=== PATIENT | female | born 1985 ===

== ENCOUNTER 2017-06-19 10:34 | Emergency (ER) | payer OTHER ==
[2017-06-19 10:34] VITALS: BMI 29.9
[2017-06-19 10:45] VITALS: TEMP 98.2; O2SAT 99
--- NOTE | 2017-06-19 11:15 | ED PDOC ---
Arrival/HPI - General Chief Complaint: Female Genitourinary Time Seen by Provider: 06/19/17 10:59 Historian: Patient - History of Present Illness Narrative History of Present Illness (Text): 06/19/17 11:12 This 31 yo female , who denies pmh, presents to this ED c/o delayed menstruation x 20 days. Patient also stated pelvic cramping, b/l lower back pain, and vaginal bleeding since last night. Patient noted intermittent urinary frequency x 1-2 weeks. Patient stated she took Ibuprofen 800 mg last night for pain. Patient denies n/v/d, sob, cp, dizziness, vaginal discharge, or abnormal gait. Urine HCG: Positive with positive control LMP: 2016 ED TECH: DR. Choi from [facility] Patient has changed one pad since yesterday Time/Duration: Other (see hpi) Context: Home Past Medical History - Provider Review Nursing Documentation Reviewed: Yes - Infectious Disease Hx of Infectious Diseases: None - Tetanus Immunization Tetanus Immunization: Unknown - Cardiac Hx Cardiac Disorders: No - Pulmonary Hx Respiratory Disorders: No - Neurological Hx Neurological Disorder: No - HEENT Hx HEENT Disorder: No - Renal Hx Renal Disorder: Yes Hx Kidney Stones: Yes - Endocrine/Metabolic Hx Endocrine Disorders: No - Hematological/Oncological Hx Blood Disorders: Yes Hx Anemia: Yes - Integumentary Hx Dermatological Disorder: No - Musculoskeletal/Rheumatological Hx Musculoskeletal Disorders: No - Gastrointestinal Hx Gastrointestinal Disorders: No - Genitourinary/Gynecological Hx Genitourinary Disorders: No - Psychiatric Hx Psychophysiologic Disorder: No Hx Substance Use: No - Surgical History Hx Section: Yes Hx Tonsillectomy: Yes - Anesthesia Hx Anesthesia: Yes Hx Anesthesia Reactions: No Hx Malignant Hyperthermia: No - Suicidal Assessment Feels Threatened In Home Enviroment: No Family/Social History - Physician Review Nursing Documentation Reviewed: Yes Family/Social History: Other (noncontributory) Smoking Status: Never Smoked Hx Alcohol Use: No Hx Substance Use: No Hx Substance Use Treatment: No Allergies/Home Meds Allergies/Adverse Reactions: Allergies No Known Allergies Allergy (Verified 06/19/17 10:37) Home Medications: Home Meds Medication Instructions Recorded Confirmed Multivit/Folic Acid/I 1 tab PO DAILY 06/19/17 06/19/17 [] Review of Systems - Review of Systems Constitutional: Normal. absent: Fatigue, Weight Change, Fevers Eyes: Normal ENT: Normal Respiratory: Normal. absent: SOB Cardiovascular: Normal Gastrointestinal: Other (pelvic cramping). absent: Diarrhea, Nausea, Vomiting Genitourinary Female: Vaginal Bleeding. absent: Dysuria, Frequency, Hematuria, Vaginal Discharge Musculoskeletal: Back Pain. absent: Neck Pain Skin: Normal. absent: Rash Neurological: Normal. absent: Headache, Dizziness Endocrine: Normal Hemo/Lymphatic: Normal Psychiatric: Normal Physical Exam Vital Signs Temp Pulse Resp BP Pulse Ox 06/19/17 15:34 61 18 113/65 99 06/19/17 13:41 64 18 115/69 99 06/19/17 12:07 65 18 118/71 99 06/19/17 10:38 98.2 F 67 16 121/75 99 Temperature: Afebrile Blood Pressure: Normal Pulse: Regular Respiratory Rate: Normal Appearance: Positive for: Well-Appearing, Non-Toxic, Comfortable Pain Distress: None Mental Status: Positive for: Alert and Oriented X 3 - Systems Exam Head: Present: Atraumatic, Normocephalic Pupils: Present: PERRL Extroacular Muscles: Present: EOMI Conjunctiva: Present: Normal Mouth: Present: Moist Mucous Membranes Neck: Present: Normal Range of Motion Respiratory/Chest: Present: Clear to Auscultation, Good Air Exchange. No: Respiratory Distress, Accessory Muscle Use Cardiovascular: Present: Regular Rate and Rhythm, Normal S1, S2. No: Murmurs Abdomen: Present: Normal Bowel Sounds. No: Tenderness, Distention, Peritoneal Signs Genitourinary/Pelvic Exam: Present: Other (deferred by patient) Back: Present: Normal Inspection. No: CVA Tenderness Upper Extremity: Present: Normal Inspection, Normal ROM. No: Cyanosis, Edema Lower Extremity: Present: Normal Inspection, Normal ROM. No: Edema Neurological: Present: GCS=15, CN II-XII Intact, Speech Normal, Motor Func Grossly Intact, Normal Sensory Function, Normal Cerebellar Funct, Gait Normal Skin: Present: Warm, Dry, Normal Color. No: Rashes Psychiatric: Present: Alert, Oriented x 3, Normal Insight, Normal Concentration Medical Decision Making ED Course and Treatment: 06/19/17 15:[address] Choi ED TECH, who recommended to have patient get a repeat Beta Quant. in 2 days. She agrees with plan to d/c pt home. Patient refused pelvic exam. Re-evaluation. Patient feels better. Discussed results and plan with patient who expresses understanding. All questions answered and there is agreement with the plan to discharge home with instructions. Patient stable for discharge. Return if symptoms persist or worsen. Re-evaluation Time: 15:18 Reassessment Condition: Re-examined, Improved - Lab Interpretations Lab Results: 06/19/17 11:30 06/19/17 11:30 Lab Results 06/19/17 12:00: Blood Type AB POSITIVE, Antibody Screen Negative, BBK History Checked Patient has bt 06/19/17 12:00: Urine Color Yellow, Urine Appearance Sl cloudy, Urine pH 6.0, Ur Specific [place] >= 1.030, Urine Protein 30 H, Urine Glucose (UA) Negative, Urine Ketones Negative, Urine Blood Large H, Urine Nitrate Positive H, Urine Bilirubin Negative, Urine Urobilinogen 0.2, Ur Leukocyte Esterase Small H, Urine RBC 25 - 30, Urine WBC 10 - 15, Ur Epithelial Cells 6 - 8, Amorphous Sediment Small, Urine Bacteria Many, Urine Other Uyeast, Urine HCG, Qual Positive 06/19/17 11:30: Beta HCG, Quant 196.31 H 06/19/17 11:30: Sodium 140, Potassium 3.9, Chloride 104, Carbon Dioxide 26, Anion Gap 14, BUN 12, Creatinine 0.6 L, Est GFR ( Amer) > 60, Est GFR ( Non-Af Amer) > 60, Random Glucose 119 H, Calcium 9.2, Total Bilirubin 0.4, AST 34, ALT 29, Alkaline Phosphatase 64, Total Protein 7.9, Albumin 4.2, Globulin 3.7, Albumin/Globulin Ratio 1.1 06/19/17 11:30: PT 12.7 H, INR 1.15 H, APTT 28.9 06/19/17 11:30: WBC 9.6, RBC 6.04, Hgb 11.5 L, Hct 38.0, MCV 62.9 L, MCH 19.0 L , MCHC 30.3 L, RDW 24.6 H, Plt Count 288, Gran % 71.1 H, Lymph % (Auto) 22.4, [place] % (Auto) 4.5, Eos % (Auto) 1.7, Baso % (Auto) 0.3, Gran # 6.82 H, Lymph # 2.2, [place] # 0.4, Eos # 0.2, Baso # 0.03 I have reviewed the lab results: Yes Interpretation: Abnormal lab values - RAD Interpretation Narrative RAD Interpretations (Text): 06/19/17 14:49 Accession No. : [id number] Patient Name / ID : DEEDEE DELAROSA / [id number] Exam Date : 06/19/2017 11:20:39 ( Approved ) Study Comment : Sex / Age : F / 31Y Creator : Мария Nicole MD Dictator : Мария Nicole MD Gas Meter Checker : Career Services Officer : Мария Nicole MD Approver2 : Report Date : 06/19/2017 14:44:10 My Comment : Indication: Pelvic cramping, vaginal bleeding. Comparison: Pelvic ultrasound performed 02/25/16 Technique: Transvaginal pelvic ultrasound. Findings: The uterus measures approximately 8.8 x 4.7 x 6.6 cm. Anteverted. Endometrial thickness measures approximately 1.1 cm in diameter. No evidence of intrauterine gestational sac. The right ovary measures 2.8 x 1.0 x 1.1 cm. The left ovary measures 2.4 x 1.3 x 1.5 cm. Blood flow Flow was demonstrated to both ovaries. Impression: No evidence of intrauterine gestational sac. If indeed the patient is based on serum beta HCG values, the sonographic findings represent either: Very early IUP; embryonic demise; ectopic gestation. Follow-up with serial quantitative serum beta HCG measurements and post OBGYN follow-up as clinically indicated, since ectopic gestation cannot be excluded based only on sonographic findings. Radiology Orders: 06/19/17 11:10 TRANSVAGINAL [US] Stat - Medication Orders Current Medication Orders: Discontinued Medications Nitrofurantoin Macrocrystals (Macrobid) 100 mg PO STAT STA Stop: 12/27/17 12:23 Last Admin: 06/19/17 12:50 Dose: 100 mg Disposition/Present on Arrival - Present on Arrival Any Indicators Present on Arrival: No History of DVT/PE: No History of Uncontrolled Diabetes: No Urinary Catheter: No History of Decub. Ulcer: No History Surgical Site Infection Following: None - Disposition Have Diagnosis and Disposition been Completed?: Yes Diagnosis: Vaginal bleeding affecting early , Acute cystitis during in first trimester Disposition: HOME/ ROUTINE Disposition Time: 15:19 Patient Plan: Discharge Condition: GOOD Discharge Instructions (ExitCare): First Trimester Vaginal Bleed (ED) Additional Instructions: You need to return to emergency to have Beta Quant. blood test repeated in 2 days. Return to emergency sooner if pelvic pain worsen. Take medication as instructed. Take OTC Tylenol for pain as instructed. Prescriptions: Nitrofurantoin Macrocrystals [Macrobid] 100 mg PO BID #13 cap Multivit/Folic Acid/I [ Plus] 1 tab PO DAILY #30 tab Referrals: Tammie Choi MD [Medical Doctor] - Follow up with primary Forms: [facility] (Italian), WORK NOTE
[2017-06-19 12:02] LABS: BASO # 0.03 K/mm3 (0.0-2.0); BASO % 0.3 % (0.0-3.0); EOS # 0.2 (0.0-0.7); EOS % 1.7 % (1.5-5.0); GRAN # 6.82 (1.4-6.5); GRAN % 71.1 % (50.0-68.0); HEMOGLOBIN 11.5 g/dL (12.0-16.0); LYMPH # 2.2 (1.2-3.4); LYMPH % 22.4 % (22.0-35.0); MEAN CELL VOLUME 62.9 fl (80.0-105.0); MEAN CORPUSCULAR HGB CONC 30.3 g/dl (31.0-37.0); MONO # 0.4 (0.1-0.6); MONO % 4.5 % (1.0-6.0); PLATELET COUNT 288 10^3/uL (120.0-450.0); RBC 6.04 10^6/uL (3.5-6.1); RED CELL DISTRIBUTION WIDTH 24.6 % (11.5-14.5); WHITE BLOOD COUNT 9.6 10^3/ul (4.5-11.0)
[2017-06-19 12:06] LABS: ALB/GLOB RATIO 1.1 (1.1-1.8); ALBUMIN 4.2 g/dL (3.0-4.8); ALT/SGPT 29 U/L (7-56); AST/SGOT 34 U/L (14-36); BLOOD UREA NITROGEN 12 mg/dL (7-21); CALCIUM 9.2 mg/dL (8.4-10.5); GFR AFRICAN-AMERICAN > 60; GFR NON-AFRICAN AMERICAN > 60
[2017-06-19 12:08] VITALS: RESP 18
[2017-06-19 12:08] LABS: INR 1.15 (0.93-1.08); PARTIAL THROMBOPLASTIN TIME 28.9 Seconds (25.1-36.5); PROTHROMBIN TIME 12.7 SECONDS (9.4-12.5)
[2017-06-19 12:14] LABS: URINE BILIRUBIN NEGATIVE (NEGATIVE); URINE BLOOD LARGE (NEGATIVE); URINE GLUCOSE (UA) NEGATIVE (NEGATIVE); URINE LEUKOCYTE ESTERASE SMALL Leu/uL (NEGATIVE); URINE NITRATE POSITIVE (NEGATIVE); URINE PROTEIN 30 mg/dL (<30 mg/dL); URINE UROBILINOGEN 0.2 E.U./dL (<1 E.U./dL)
[2017-06-19 12:16] LABS: HCG,QUALITATIVE URINE POSITIVE (NEGATIVE); URINE APPEARANCE SL CLOUDY (CLEAR); URINE COLOR YELLOW (YELLOW)
[2017-06-19 12:19] LABS: URINE AMORPHOUS SEDIMENT SMALL; URINE BACTERIA MANY (NEG); URINE RBC 25 - 30 /hpf (0-2)
--- NOTE | 2017-06-19 14:45 | US ---
Indication: Pelvic cramping, vaginal bleeding. Comparison: Pelvic ultrasound performed 02/25/16 Technique: Transvaginal pelvic ultrasound. Findings: The uterus measures approximately 8.8 x 4.7 x 6.6 cm. Anteverted. Endometrial thickness measures approximately 1.1 cm in diameter. No evidence of intrauterine gestational sac. The right ovary measures 2.8 x 1.0 x 1.1 cm. The left ovary measures 2.4 x 1.3 x 1.5 cm. Blood flow Flow was demonstrated to both ovaries. Impression: No evidence of intrauterine gestational sac. If indeed the patient is based on serum beta HCG values, the sonographic findings represent either: Very early IUP; embryonic demise; ectopic gestation. Follow-up with serial quantitative serum beta HCG measurements and post OBGYN follow-up as clinically indicated, since ectopic gestation cannot be excluded based only on sonographic findings.
[2017-06-19 15:35] VITALS: BP 113/65; PULSE 61
== END 2017-06-19 15:39 | disposition home or self-care (01) ==
LOC: ED 10:34
DX: O46.91 Antepartum hemorrhage, unspecified, first trimester (principal); O23.11 Infections of bladder in pregnancy, first trimester; Z3A.00 Weeks of gestation of pregnancy not specified

== ENCOUNTER 2017-06-21 16:50 | Emergency (ER) | payer OTHER ==
[2017-06-21 16:50] VITALS: BMI 29.9
[2017-06-21 16:59] VITALS: BP 104/72; PULSE 75; RESP 16; TEMP 97.6; O2SAT 100
--- NOTE | 2017-06-21 17:03 | ED PDOC ---
Arrival/HPI - General Chief Complaint: Female Genitourinary Time Seen by Provider: 06/21/17 16:56 Historian: Patient - History of Present Illness Narrative History of Present Illness (Text): 06/21/17 16:59 PT is a 31yo female who present to ED for a repeat beta quant. Patient was seen here on June 19 for vaginal bleeding. She was found and baseline beta quant was done with a recommendations for a repeat beta in 2days. She came to ED for the beta. States still having mild vaginal bleeding. Denies abdominal pain, nausea, vomiting, fever, chills, any other complaint. 1 Past Medical History - Provider Review Nursing Documentation Reviewed: Yes - Infectious Disease Hx of Infectious Diseases: None - Tetanus Immunization Tetanus Immunization: Unknown - Cardiac Hx Cardiac Disorders: No - Pulmonary Hx Respiratory Disorders: No - Neurological Hx Neurological Disorder: No - HEENT Hx HEENT Disorder: No - Renal Hx Renal Disorder: Yes Hx Kidney Stones: Yes - Endocrine/Metabolic Hx Endocrine Disorders: No - Hematological/Oncological Hx Blood Disorders: Yes Hx Anemia: Yes - Integumentary Hx Dermatological Disorder: No - Musculoskeletal/Rheumatological Hx Musculoskeletal Disorders: No - Gastrointestinal Hx Gastrointestinal Disorders: No - Genitourinary/Gynecological Hx Genitourinary Disorders: No - Psychiatric Hx Psychophysiologic Disorder: No Hx Substance Use: No - Surgical History Hx Section: Yes Hx Tonsillectomy: Yes - Anesthesia Hx Anesthesia: Yes Hx Anesthesia Reactions: No Hx Malignant Hyperthermia: No - Suicidal Assessment Feels Threatened In Home Enviroment: No Family/Social History - Physician Review Nursing Documentation Reviewed: Yes Family/Social History: Unknown Family HX Smoking Status: Never Smoked Hx Alcohol Use: No Hx Substance Use: No Hx Substance Use Treatment: No Allergies/Home Meds Allergies/Adverse Reactions: Allergies No Known Allergies Allergy (Verified 06/21/17 16:53) Review of Systems - Physician Review All systems were reviewed & negative as marked: Yes - Review of Systems Constitutional: Normal Eyes: Normal ENT: Normal Respiratory: Normal Cardiovascular: Normal Gastrointestinal: Normal Genitourinary Female: Vaginal Bleeding, Other Musculoskeletal: Normal Skin: Normal Neurological: Normal Endocrine: Normal Hemo/Lymphatic: Normal Psychiatric: Normal Physical Exam Vital Signs Reviewed: Yes Vital Signs Temp Pulse Resp BP Pulse Ox 06/21/17 16:57 97.6 F 75 16 104/72 100 Temperature: Afebrile Blood Pressure: Normal Pulse: Regular Respiratory Rate: Normal Appearance: Positive for: Well-Appearing, Non-Toxic, Comfortable Pain Distress: None Mental Status: Positive for: Alert and Oriented X 3 - Systems Exam Head: Present: Atraumatic, Normocephalic Pupils: Present: PERRL Extroacular Muscles: Present: EOMI Conjunctiva: Present: Normal Mouth: Present: Moist Mucous Membranes Neck: Present: Normal Range of Motion Respiratory/Chest: Present: Clear to Auscultation, Good Air Exchange. No: Respiratory Distress, Accessory Muscle Use Cardiovascular: Present: Regular Rate and Rhythm, Normal S1, S2. No: Murmurs Abdomen: Present: Normal Bowel Sounds. No: Tenderness, Distention, Peritoneal Signs Back: Present: Normal Inspection Upper Extremity: Present: Normal Inspection. No: Cyanosis, Edema Lower Extremity: Present: Normal Inspection. No: Edema Neurological: Present: GCS=15, CN II-XII Intact, Speech Normal Skin: Present: Warm, Dry, Normal Color. No: Rashes Psychiatric: Present: Alert, Oriented x 3, Normal Insight, Normal Concentration Medical Decision Making ED Course and Treatment: 06/21/17 18:21 Pt was comfortable in ED. Repeat beta was decreased 46.84 compare to what it was 2days ago, 196.31. Result was DW the pt. she was referred to her OB. She notes that she have appointment with her OB Dr Choi July 01. T ED for any new or worsening symptoms. - Lab Interpretations Lab Results: Lab Results 06/21/17 17:10: Beta HCG, Quant 46.84 H Disposition/Present on Arrival - Present on Arrival Any Indicators Present on Arrival: No History of DVT/PE: No History of Uncontrolled Diabetes: No Urinary Catheter: No History of Decub. Ulcer: No History Surgical Site Infection Following: None - Disposition Have Diagnosis and Disposition been Completed?: Yes Diagnosis: Threatened Disposition: HOME/ ROUTINE Disposition Time: 18:25 Patient Plan: Discharge Patient Problems: Current Active Problems Problem Status Onset Threatened Acute Condition: STABLE Discharge Instructions (ExitCare): Threatened Miscarriage (ED) Additional Instructions: Follow up wiht your OB for a repeat beta quant Return to ED for any new or worsening symptoms. Referrals: [facility] Candida oClon, [Primary Care Provider] - Follow up with primary Forms: [employer] (Vietnamese)
== END 2017-06-21 18:10 | disposition home or self-care (01) ==
LOC: ED 16:50
DX: O20.0 Threatened abortion (principal); Z3A.00 Weeks of gestation of pregnancy not specified

== ENCOUNTER 2017-10-08 04:34 | Emergency (ER) | payer OTHER ==
[2017-10-08 04:35] VITALS: BMI 29.9
[2017-10-08 04:52] VITALS: RESP 18; O2SAT 100
[2017-10-08] MEDS ORDERED: Morphine 4 mg/ml ISec IVP STA (04:58)
--- NOTE | 2017-10-08 05:22 | ED PDOC ---
Arrival/HPI - General Chief Complaint: Female Genitourinary Time Seen by Provider: 10/08/17 04:52 Historian: Patient - History of Present Illness Narrative History of Present Illness (Text): 10/08/17 05:19 32 year old female, whose 5,3,0,1,3, presents to the emergency department complaining of worsening abdominal cramping and vaginal bleeding. Patient went to see Dr. Corky Maguire who diagnosed the patient is having a miscarriage. Patient reports she is 10 1/12 weeks , but ultrasound showed 6 weeks with an empty sac. Dr. Choi told the patient if the bleeding gets worse to go to the ER. Patient did not know we did not have a OB. She reports her OB may work at [employer]. Patient denies any fever, chills, chest pain, shortness of breath, nausea, vomiting, diarrhea, urinary symptoms, back pain, neck pain, headache, dizziness, or any other complaints. Symptom Onset: Gradual Symptom Course: Worsening Activities at Onset: Light Context: Home Past Medical History - Infectious Disease Hx of Infectious Diseases: None - Tetanus Immunization Tetanus Immunization: Unknown - Cardiac Hx Cardiac Disorders: No - Pulmonary Hx Respiratory Disorders: No - Neurological Hx Neurological Disorder: No - HEENT Hx HEENT Disorder: No - Renal Hx Renal Disorder: Yes Hx Kidney Stones: Yes - Endocrine/Metabolic Hx Endocrine Disorders: No - Hematological/Oncological Hx Blood Disorders: Yes Hx Anemia: Yes - Integumentary Hx Dermatological Disorder: No - Musculoskeletal/Rheumatological Hx Musculoskeletal Disorders: No - Gastrointestinal Hx Gastrointestinal Disorders: No - Genitourinary/Gynecological Hx Genitourinary Disorders: No - Psychiatric Hx Psychophysiologic Disorder: No Hx Substance Use: No - Surgical History Hx Section: Yes Hx Tonsillectomy: Yes - Anesthesia Hx Anesthesia: Yes Hx Anesthesia Reactions: No Hx Malignant Hyperthermia: No - Suicidal Assessment Feels Threatened In Home Enviroment: No Family/Social History - Physician Review Nursing Documentation Reviewed: Yes Family/Social History: No Known Family HX Smoking Status: Never Smoked Hx Alcohol Use: No Hx Substance Use: No Hx Substance Use Treatment: No Allergies/Home Meds Allergies/Adverse Reactions: Allergies No Known Allergies Allergy (Verified 06/21/17 16:53) Review of Systems - Physician Review All systems were reviewed & negative as marked: Yes - Review of Systems Constitutional: absent: Fevers, Other (Chills) Respiratory: absent: SOB Cardiovascular: absent: Chest Pain Gastrointestinal: Abdominal Pain (Abdominal cramping ). absent: Diarrhea, Nausea, Vomiting Genitourinary Female: Vaginal Bleeding. absent: Dysuria, Frequency, Hematuria Musculoskeletal: absent: Back Pain, Neck Pain Neurological: absent: Headache, Dizziness Physical Exam Vital Signs Reviewed: Yes Vital Signs Pulse Resp BP Pulse Ox 10/08/17 06:35 60 18 141/60 100 10/08/17 04:51 75 18 129/84 100 Blood Pressure: Normal Pulse: Regular Respiratory Rate: Normal Appearance: Positive for: Well-Appearing, Non-Toxic, Comfortable Pain Distress: None Mental Status: Positive for: Alert and Oriented X 3 - Systems Exam Head: Present: Atraumatic, Normocephalic Pupils: Present: PERRL Extroacular Muscles: Present: EOMI Conjunctiva: Present: Normal Mouth: Present: Moist Mucous Membranes Neck: Present: Normal Range of Motion Respiratory/Chest: Present: Clear to Auscultation, Good Air Exchange. No: Respiratory Distress, Accessory Muscle Use Cardiovascular: Present: Regular Rate and Rhythm, Normal S1, S2. No: Murmurs Abdomen: No: Tenderness, Distention, Peritoneal Signs Back: Present: Normal Inspection Upper Extremity: Present: Normal Inspection. No: Cyanosis, Edema Lower Extremity: Present: Normal Inspection. No: Edema Neurological: Present: GCS=15, CN II-XII Intact, Speech Normal Skin: Present: Warm, Dry, Normal Color. No: Rashes Psychiatric: Present: Alert, Oriented x 3, Normal Insight, Normal Concentration Medical Decision Making ED Course and Treatment: 10/08/17 05:20 Impression: 32 year old female presents complaining of worsening abdominal cramping and vaginal bleeding. Patient currently having a miscarriage. Plan: -- Labs -- Morphine, Zofran Inj -- Urinalysis -- Transvaginal Us -- Reassess and disposition Prior Visits: Notes and results from previous visits were reviewed. On 06/21/17 patient came in complaining of vaginal bleeding. Patient was discharged. Progress Notes: 10/08/2017 07:06 Transvaginal US IMPRESSION: 1. The endometrial stripe measures 2.8 cm with complex echogenicity and fluid in the endometrial canal. There is echogenic material within the lower uterine segment and the proximal endocervical canal likely representing products of conception and blood products with spontaneous in progress. The possibility of endometritis/infection is not excluded if clinically suspected. Correlation with gynecology history clinical evaluation and further workup or followup as recommended by patient's clinical data. Dictator: Rachael Baker MD - Lab Interpretations Lab Results: 10/08/17 05:35 10/08/17 05:35 Lab Results 10/08/17 05:35: Beta HCG, Quant 4584.10 H 10/08/17 05:35: Sodium 138, Potassium 4.1, Chloride 102, Carbon Dioxide 25, Anion Gap 15, BUN 13, Creatinine 0.6 L, Est GFR ( Amer) > 60, Est GFR ( Non-Af Amer) > 60, Random Glucose 109, Calcium 8.9, Total Bilirubin 0.2, AST 44 H D, ALT 41, Alkaline Phosphatase 55, Total Protein 7.6, Albumin 4.2, Globulin 3.4, Albumin/Globulin Ratio 1.2 10/08/17 05:35: WBC 13.7 H D, RBC 5.68, Hgb 12.6, Hct 38.4, MCV 67.6 L D, MCH 22.2 L, MCHC 32.8, RDW 16.3 H, Plt Count 280, MPV 10.0, Gran % 67.6, Lymph % ( Auto) 26.4, [place] % (Auto) 3.9, Eos % (Auto) 1.8, Baso % (Auto) 0.3, Gran # 9.23 H, Lymph # (Auto) 3.6 H, [place] # (Auto) 0.5, Eos # (Auto) 0.3, Baso # (Auto) 0.04 I have reviewed the lab results: Yes - RAD Interpretation Radiology Orders: 10/08/17 04:58 OB TRANSVAGINAL [US] Stat - Medication Orders Current Medication Orders: Discontinued Medications Morphine Sulfate (Morphine) 4 mg IVP STAT STA Stop: 10/08/17 04:59 Last Admin: 10/08/17 06:34 Dose: 4 mg DEBI Pain Assessment Document 10/08/17 06:34 SS (Rec: 10/08/17 06:35 SS [facility] [id number] Pain Reassessment Is this a pain reassessment? No Sleep Is patient sleeping during reassessment? No Presence of Pain Presence of Pain Yes Pain Scale Used Pain Scale Used Numeric Location Upper or Lower Lower Pain Location Body Site Abdomen Description Description Cramping IVP Administration Document 10/08/17 06:34 SS (Rec: 10/08/17 06:[address] [facility] [id number] Charges for Administration # of IVP Administrations 1 Ondansetron HCl (Zofran Inj) 4 mg IVP STAT STA Stop: 10/08/17 04:59 Last Admin: 10/08/17 06:34 Dose: 4 mg IVP Administration Document 10/08/17 06:34 SS (Rec: 10/08/17 06:[address] [facility] [id number] Charges for Administration # of IVP Administrations 1 - Scribe Statement The provider has reviewed the documentation as recorded by the Homer Gambino Provider Scribe Attestation: All medical record entries made by the Scribe were at my direction and personally dictated by me. I have reviewed the chart and agree that the record accurately reflects my personal performance of the history, physical exam, medical decision making, and the department course for this patient. I have also personally directed, reviewed, and agree with the discharge instructions and disposition. Disposition/Present on Arrival - Present on Arrival History of DVT/PE: No History of Uncontrolled Diabetes: No Urinary Catheter: No History of Decub. Ulcer: No History Surgical Site Infection Following: None - Disposition Forms: [employer] (Greek)
[2017-10-08 05:59] LABS: BASO # 0.04 K/mm3 (0.0-2.0); BASO % 0.3 % (0.0-3.0); EOS # 0.3 (0.0-0.7); EOS % 1.8 % (1.5-5.0); GRAN # 9.23 (1.4-6.5); GRAN % 67.6 % (50.0-68.0); HEMOGLOBIN 12.6 g/dL (12.0-16.0); LYMPH # 3.6 (1.2-3.4); LYMPH % 26.4 % (22.0-35.0); MEAN CORPUSCULAR HEMOGLOBIN 22.2 pg (25.0-35.0); MEAN CORPUSCULAR HGB CONC 32.8 g/dl (31.0-37.0); MONO # 0.5 (0.1-0.6); MONO % 3.9 % (1.0-6.0); RBC 5.68 10^6/uL (3.5-6.1); RED CELL DISTRIBUTION WIDTH 16.3 % (11.5-14.5); WHITE BLOOD COUNT 13.7 10^3/ul (4.5-11.0)
[2017-10-08 06:09] LABS: MEAN CELL VOLUME 67.6 fl (80.0-105.0)
[2017-10-08 06:17] LABS: ALB/GLOB RATIO 1.2 (1.1-1.8); ALBUMIN 4.2 g/dL (3.0-4.8); ALT/SGPT 41 U/L (7-56); AST/SGOT 44 U/L (14-36); BLOOD UREA NITROGEN 13 mg/dL (7-21); CALCIUM 8.9 mg/dL (8.4-10.5); GFR AFRICAN-AMERICAN > 60; GFR NON-AFRICAN AMERICAN > 60
[2017-10-08 06:35] VITALS: BP 141/60; PULSE 60
--- NOTE | 2017-10-08 07:07 | US ---
EXAM: US First Trimester, Transabdominal US , Transvaginal CLINICAL HISTORY: 32 years old, female; Pain; complicated by abdominal or pelvic pain; Lower; First trimester; Gestational age or lmp: 07/21/2017; ; Additional info: Inevitable miscarrage TECHNIQUE: Real-time transabdominal and transvaginal obstetrical ultrasound of the maternal pelvis and a first trimester with image documentation. Transvaginal imaging was used for better evaluation of the fetus and adnexa. Grayscale, color and spectral pulse Doppler images are submitted.A duplex/doppler ultrasound was performed specifically BOTH COLOR FLOW AND spectral Doppler analysis (waveforms) were performed and interpreted. COMPARISON: US - TRANSVAGINAL 2017-06-19 11:20 FINDINGS: Gestation: No IUP is seen. Uterus/cervix: The endometrial stripe measures 2.8 cm with complex echogenicity and fluid in the endometrial canal. There is echogenic material within the lower uterine segment and the proximal endocervical canal likely representing products of conception and blood products. Anteverted uterus measuring 12.7 x 5.5 x 7.2 cm. Ovaries: The right ovary is not seen. The left ovary measures 3.1 x 1.9 x 3.0 cm. Duplex assessment demonstrates presence of color Doppler signal and spectral Doppler waveform in left ovary. Free fluid: No free fluid. Bladder: Suboptimally evaluated partially distended bladder. IMPRESSION: 1. The endometrial stripe measures 2.8 cm with complex echogenicity and fluid in the endometrial canal. There is echogenic material within the lower uterine segment and the proximal endocervical canal likely representing products of conception and blood products with spontaneous in progress. The possibility of endometritis/infection is not excluded if clinically suspected. Correlation with gynecology history clinical evaluation and further workup or followup as recommended by patient's clinical data.
--- NOTE | 2017-10-08 07:29 | ED PDOC ---
Physical Exam Vital Signs Pulse Resp BP Pulse Ox 10/08/17 06:35 60 18 141/60 100 10/08/17 04:51 75 18 129/84 100 Medical Decision Making ED Course and Treatment: 10/08/17 07:28 Patient endorsed to me by Dr. Arango. Discusses case with Dr. Choi, whom states patient is having current active miscarrriage and to discharge patient home. Dr. Choi will contact patient to arrange possible d and c this am as outpt 10/08/17 08:48 - Lab Interpretations Lab Results: 10/08/17 05:35 10/08/17 05:35 Lab Results 10/08/17 05:35: Beta HCG, Quant 4584.10 H 10/08/17 05:35: Sodium 138, Potassium 4.1, Chloride 102, Carbon Dioxide 25, Anion Gap 15, BUN 13, Creatinine 0.6 L, Est GFR ( Amer) > 60, Est GFR ( Non-Af Amer) > 60, Random Glucose 109, Calcium 8.9, Total Bilirubin 0.2, AST 44 H D, ALT 41, Alkaline Phosphatase 55, Total Protein 7.6, Albumin 4.2, Globulin 3.4, Albumin/Globulin Ratio 1.2 10/08/17 05:35: WBC 13.7 H D, RBC 5.68, Hgb 12.6, Hct 38.4, MCV 67.6 L D, MCH 22.2 L, MCHC 32.8, RDW 16.3 H, Plt Count 280, MPV 10.0, Gran % 67.6, Lymph % ( Auto) 26.4, Thurston % (Auto) 3.9, Eos % (Auto) 1.8, Baso % (Auto) 0.3, Gran # 9.23 H, Lymph # (Auto) 3.6 H, Thurston # (Auto) 0.5, Eos # (Auto) 0.3, Baso # (Auto) 0.04 - RAD Interpretation Radiology Orders: 10/08/17 04:58 OB TRANSVAGINAL [US] Stat - Medication Orders Current Medication Orders: Discontinued Medications Morphine Sulfate (Morphine) 4 mg IVP STAT STA Stop: 10/08/17 04:59 Last Admin: 10/08/17 06:34 Dose: 4 mg MAR Pain Assessment Document 10/08/17 06:34 SS (Rec: 10/08/17 06:35 [id number] Pain Reassessment Is this a pain reassessment? No Sleep Is patient sleeping during reassessment? No Presence of Pain Presence of Pain Yes Pain Scale Used Pain Scale Used Numeric Location Upper or Lower Lower Pain Location Body Site Abdomen Description Description Cramping IVP Administration Document 10/08/17 06:34 SS (Rec: 10/08/17 06:35 [id number] Charges for Administration # of IVP Administrations 1 Ondansetron HCl (Zofran Inj) 4 mg IVP STAT STA Stop: 10/08/17 04:59 Last Admin: 10/08/17 06:34 Dose: 4 mg IVP Administration Document 10/08/17 06:34 SS (Rec: 10/08/17 06:34 [id number] Charges for Administration # of IVP Administrations 1 - Scribe Statement The provider has reviewed the documentation as recorded by the Homer Guaman Provider Scribe Attestation: All medical record entries made by the Scribstoney were at my direction and personally dictated by me. I have reviewed the chart and agree that the record accurately reflects my personal performance of the history, physical exam, medical decision making, and the department course for this patient. I have also personally directed, reviewed, and agree with the discharge instructions and disposition. Disposition/Present on Arrival - Present on Arrival Any Indicators Present on Arrival: No History of DVT/PE: No History of Uncontrolled Diabetes: No Urinary Catheter: No History of Decub. Ulcer: No History Surgical Site Infection Following: None - Disposition Have Diagnosis and Disposition been Completed?: Yes Diagnosis: Miscarriage Disposition: HOME/ ROUTINE Disposition Time: 08:00 Condition: STABLE Discharge Instructions (ExitCare): Miscarriage Additional Instructions: please return to er with worsening symptoms or concerns. please contact your obgyn. you may need additional procedure. Forms: [employer] (Azeri)
== END 2017-10-08 07:47 | disposition home or self-care (01) ==
LOC: ED 04:34
DX: O03.9 Complete or unspecified spontaneous abortion without complication (principal)
CPT/HCPCS: 76817; 80053; 84702; 85025; 86850; 86900; 96374; 96375; 99284; J2270; J2405